=== PATIENT | female | born 1960 | race Caucasian/White ===

== ENCOUNTER 2021-12-22 11:44 | Emergency (ER) | payer OTHER ==
[~2021-12-22] VITALS: Ht 165.1 cm; Wt 59.0 kg
[2021-12-22] MEDS ORDERED: IV NORMAL SALINE 1000 ML BAG IV ONE (12:45)
[2021-12-22 12:51] LABS: HEMATOCRIT 38.9 % (31.2-41.9); MEAN CORPUSCULAR HEMOGLOBIN 31.1 uug (24.7-32.8); MEAN CORPUSCULAR VOLUME 91.1 fL (75.5-95.3); PLATELET COUNT (AUTO) 339 K/uL (179-408)
[2021-12-22 13:00] LABS: POTASSIUM 3.7 mmol/L (3.5-5.1)
[2021-12-22 13:13] LABS: BILIRUBIN,DIRECT 0.1 mg/dL (0.0-0.2); BILIRUBIN,TOTAL 0.5 mg/dL (0.2-1.0); TOTAL PROTEIN, SERUM 7.8 g/dL (6.4-8.2)
[2021-12-22] MEDS ORDERED: IV NORMAL SALINE 250 ML IV ONE (15:30)
[2021-12-22] MEDS ORDERED: SWABABLE VALVE TRANSFER SET EA MC ONE (15:30)
[2021-12-22] MEDS ORDERED: IOHEXOL 350 100 ML INFUS..BTL ONE (15:30)
--- NOTE | 2021-12-22 18:09 | NUR ---
PT SEEN AND EVALUATED BY DR SHUKLA.
--- NOTE | 2021-12-22 18:09 | NUR ---
DR SHUKLA DISCUSSED AND EXPLAINED TEST RESULTS TO PATINT.
--- NOTE | 2021-12-22 18:10 | NUR ---
REPEAT EKG DONE - REVIEWED BY DR. SHUKLA. PT FEELING BETTER AT THIS TIME. DISCHARGED IN STABLE CONDITION PER MD ORDER.
[2021-12-22 18:11] VITALS: BP 108/80
== END 2021-12-22 18:12 | disposition home or self-care (01) ==
LOC: ER 11:44
DX: R07.89 Other chest pain (principal); R10.12 Left upper quadrant pain; Z98.82 Breast implant status; Z82.49 Family history of ischemic heart disease and other diseases of the circulatory system; E27.9 Disorder of adrenal gland, unspecified; R79.1 Abnormal coagulation profile; Z88.0 Allergy status to penicillin; J45.909 Unspecified asthma, uncomplicated
CPT/HCPCS: 36415; 71101; 71275; 80048; 80076; 83880; 84484 ×2; 85025; 85379; 85730; 93005 ×2; 99285; Q9967; 70030-TC; A4663; J7030; J7050